=== PATIENT | female | born 1965 | race Caucasian/White ===

== ENCOUNTER → 2018-04-15 | Outpatient (CLI) | payer BC ==
--- NOTE | 2018-04-15 11:29 | Diagnostic Imaging Report ---
EXAM: Right upper quadrant abdominal ultrasound INDICATION: Fatty liver. COMPARISON: None. TECHNIQUE: Transverse and longitudinal images of the right upper quadrant abdomen were obtained FINDINGS: Liver: Size: 15.7 cm in the right midclavicular line Appearance: Increased echogenicity, smooth contour Mass: No focal masses Gallbladder: No evidence of distention, pericholecystic fluid, wall thickening, stone, or reported sonographic Mccray's sign. Gallbladder wall measures 0.2 cm. Bile Ducts: Intrahepatic Ducts: No dilatation Extrahepatic Ducts: Common bile duct measures 0.3 cm, no dilatation Pancreas: Visualized portions of the pancreatic head, neck and proximal body are normal. Kidney: The right kidney measures 11.2 cm without evidence of hydronephrosis or stone. Vessels: Aorta: Visualized portions are normal Inferior Vena Cava: Visualized portions are normal Main Portal Vein: 1.1 cm, normal size with hepatopetal flow. Free Fluid: No evidence of ascites. IMPRESSION: Hepatic steatosis with borderline hepatomegaly. Signed by: Dr. Donita Pinto MD on 04/15/2018 11:25 AM
== END ==
LOC: US 10:19
PROVIDERS: ATTEND Internal Medicine Gastroenterology
DX: K76.0 Fatty (change of) liver, not elsewhere classified (principal)
CPT/HCPCS: 76705

== ENCOUNTER → 2020-10-26 | Day surgery (SDC) | payer BC ==
[~2020-10-26] MED LIST: CALCET TABLET1 EACH PO; CYCLOBENZAPRINE10 MG PO; DIAZEPAM10 MG PO; ESTRADIOL1 MG PO; FARXIGA5 MG PO; GLIPIZIDE ER5 MG PO; HYDROCHLOROTHIA25 MG PO; LEVOTHYROXINE112 MCG PO; LIDOCAINE HCL 2% LOCAL INJ 5 ML SDV VIAL INJ ONE; MAGNESIUM OXID400 MG PO; MELATONIN3 MG PO; METFORMIN HCL500 MG PO; OMEPRAZOLE40 MG PO; PRAVASTATIN SOD20 MG PO; PROGESTERONE100 MG PO; SERTRALINE HCL50 MG PO; VIT D PO; ZESTRIL2.5 MG PO; ZINC PO
[2020-10-26 09:30] VITALS: BP 117/80
== END | disposition home or self-care (01) ==
LOC: OR 05:52
PROVIDERS: ATTEND Internal Medicine Gastroenterology
DX: K29.50 Unspecified chronic gastritis without bleeding (principal); D12.7 Benign neoplasm of rectosigmoid junction; D12.4 Benign neoplasm of descending colon; D12.5 Benign neoplasm of sigmoid colon; D12.3 Benign neoplasm of transverse colon; K20.90 Esophagitis, unspecified without bleeding; K57.30 Diverticulosis of large intestine without perforation or abscess without bleeding; K64.8 Other hemorrhoids; D64.89 Other specified anemias; E11.9 Type 2 diabetes mellitus without complications; E03.9 Hypothyroidism, unspecified; E78.00 Pure hypercholesterolemia, unspecified; M19.90 Unspecified osteoarthritis, unspecified site; K76.0 Fatty (change of) liver, not elsewhere classified; Z87.442 Personal history of urinary calculi; Z86.010 Personal history of colon polyps; Z68.31 Body mass index [BMI] 31.0-31.9, adult; Z98.84 Bariatric surgery status; Z79.84 Long term (current) use of oral hypoglycemic drugs; Z01.810 Encounter for preprocedural cardiovascular examination; Z01.812 Encounter for preprocedural laboratory examination; Z20.822 Contact with and (suspected) exposure to COVID-19
CPT/HCPCS: 36415; 43239; 45384; 45385; 82948; 93005; J2001; U0002; 45378